=== PATIENT | female | born 1950 | race Caucasian/White ===

== ENCOUNTER → 2016-09-29 | Outpatient (CLI) | payer OTHER | LOC: FIMAGING 14:01 | PROVIDERS: ATTEND Internal Medicine Hematology & Oncology | DX: N63 Unspecified lump in breast (principal) | CPT/HCPCS: G0206; G0279 ==

== ENCOUNTER 2017-06-16 16:09 | Observation (INO) | payer OTHER ==
[2017-06-16] MEDS ORDERED: KETOROLAC 30 MG/1 ML SDV IVP ONE ×2 (16:39)
--- NOTE | 2017-06-16 16:39 | EDPHY ---
H & P Stated Complaint: RLQ pain x2 days w/ chills, unable to amb due to pain today - Personal History Current Tetanus/Diphtheria Vaccine: Yes Tetanus Vaccine Date: less than 10 years - Medical/Surgical History Hx Asthma: No Hx Chronic Respiratory Disease: No Hx Diabetes: No Hx Cardiac Disease: No Hx Renal Disease: No Hx Cirrhosis: No Hx Alcoholism: No Hx HIV/AIDS: No Hx Splenectomy or Spleen Trauma: No Other PMH: breast cancer L side with surgery, thyroidectomy, bilateral foot surgery 40 yrs ago - Social History Smoking Status: Never smoked Time Seen by Provider: 06/16/17 16:33 HPI/ROS: CHIEF COMPLAINT: Right lower quadrant abdominal pain x2 days HISTORY OF PRESENT ILLNESS: 67-year-old female arrives via ambulance complaining of progressive right lower quadrant abdominal pain x2 days, subjective fever. No nausea or vomiting. Bowel movements normal. No urinary abnormality. No trauma. No abnormal vaginal discharge or bleeding. No history of abdominal surgeries. No chest pain. No dyspnea. No back or flank pain. Last oral intake was a cup of coffee at 9:00 a.m. PRIMARY CARE PROVIDER:Dr. Berta Romero. REVIEW OF SYSTEMS: A ten point review of systems was performed and is negative with the exception of the items mentioned in the HPI PAST MEDICAL & SURGICAL HISTORY: Breast cancer. Thyroidectomy. Nephrolithiasis. SOCIAL HISTORY:nonsmoker PHYSICAL EXAM (Prior to examination, patient consented to physical exam, hands were washed and my usual and customary physical exam procedures followed) 1) GENERAL: Well-developed, well-nourished, alert and oriented. Appears to be in no acute distress. 2) HEAD: Normocephalic, atraumatic 3) HEENT: Pupils equal, round, reactive to light bilaterally. Sclera anicteric. 4) NECK: Full range of motion, no meningeal signs. 5) LUNGS: Clear auscultation bilaterally, no wheezes, no rhonchi, no retractions. 6) HEART: Regular rate and rhythm, no murmur, no heave, no gallop. 7) ABDOMEN: guarding abdomen, positive McBurney's point pain, negative Torres's , negative Rovsing's, negative peritoneal sign, 8) MUSCULOSKELETAL: Moving all extremities, no focal areas of tenderness, no obvious trauma. No peripheral edema or discoloration. 9) BACK: No CVA tenderness, no midline vertebral tenderness, no fluctuance, no step-off, no obvious trauma, no visual or palpable abnormality. 10) SKIN: No rash, no petechiae. 11) Psychiatric: Patient is oriented X 3, there is no agitation. DIFFERENTIAL DIAGNOSIS: My differential diagnosis includes, but is not limited to, acute appendicitis, acute cholecystitis, bowel obstruction, acute pancreatitis, ovarian torsion, gastritis and urinary tract infection. The patient understands that this diagnosis is provisional and can never be 100% accurate. This is a partial list of diagnoses considered. These considerations are based on history, physical exam, past history and reassessment. (Kleber Porter) Constitutional: Initial Vital Signs Temperature (C) 37 C 06/16/17 16:20 Heart Rate 87 06/16/17 16:20 Respiratory Rate 18 06/16/17 16:20 Blood Pressure 116/74 06/16/17 16:20 O2 Sat (%) 88 L 06/16/17 16:20 O2 Delivery Mode Room Air Allergies/Adverse Reactions: amoxicillin [Amoxicillin] Allergy (Verified 06/28/14 13:36) Swelling/neck,face,throat amoxicillin trihydrate [From Augmentin] Allergy (Verified 06/28/14 13:36) ORAL SWELLING latex Allergy (Verified 06/16/17 16:20) potassium clavulanate [From Augmentin] Allergy (Verified 06/28/14 13:36) ORAL SWELLING Home Medications: Medication Instructions Recorded Anastrozole 06/28/14 Levothyroxine 06/16/17 Medical Decision Making - Diagnostics Imaging Results: Imaging Impressions Abdomen CT 06/16/17 16:37 Impression: 1. Findings compatible with appendicitis as detailed above. 2. Incidental cysts within the liver and left kidney. 3. New mild compression superior endplate of L4. Prior DEXA scan from February, revealed osteoporosis. These findings were discussed by telephone with Dr. Beni Lopez at 17:50 hour, 06/16/2017. ED Course/Re-evaluation: 4:39 p.m.: Diagnostic studies will be obtained on this patient including CT imaging for concerns over possible acute appendicitis. She remains NPO since 9: 00 a.m. today. 5:00 p.m.: Care turned over to Dr. Lopez. (Kleber Porter) I took over care of this patient at 5:00 p.m.. This patient is here for right lower quadrant pain and evaluation for possible appendicitis. CT scan contrast enhanced is pending at this time. 6:15 p.m., patient re-evaluated. Discussed results of CT scan and diagnosis of appendicitis. Discussed need for operative management. Patient has an allergy to penicillins. She was started on IV ciprofloxacin and Flagyl in the emergency department. All of her questions were answered. 6:30 p.m., spoke with on-call general surgeon Dr. Valentino. Case discussed with him in detail. He will see this patient in the emergency department with plan for operative management. Patient's remaining emergency department course under my care uneventful. Patient admitted under the care of Dr. Valentino in stable condition. (Shagufta Lopez) - Data Points Laboratory Results: Laboratory Results 06/16/17 16:00 06/16/17 16:00 06/16/17 06/16/17 06/16/17 16:40 16:00 16:00 WBC 16.62 10^3/uL H 10^3/uL (3.80-9.50) RBC 5.86 10^6/uL H 10^6/uL (4.18-5.33) Hgb 17.9 g/dL H g/dL (12.6-16.3) POC Hgb 18.4 gm/dL H gm/dL (12.6-16.3) Hct 50.7 % H % (38.0-47.0) POC Hct 54 % H % (38-47) MCV 86.5 fL fL (81.5-99.8) MCH 30.5 pg pg (27.9-34.1) MCHC 35.3 g/dL g/dL (32.4-36.7) RDW 13.2 % % (11.5-15.2) Plt Count 186 10^3/uL 10^3/uL (150-400) MPV 10.9 fL fL (8.7-11.7) Neut % (Auto) 81.8 % H % (39.3-74.2) Lymph % (Auto) 12.2 % L % (15.0-45.0) [place] % (Auto) 5.3 % % (4.5-13.0) Eos % (Auto) 0.0 % L % (0.6-7.6) Baso % (Auto) 0.2 % L % (0.3-1.7) Nucleat RBC Rel Count 0.0 % % (0.0-0.2) Absolute Neuts (auto) 13.60 10^3/uL H 10^3/uL (1.70-6.50) Absolute Lymphs (auto) 2.02 10^3/uL 10^3/uL (1.00-3.00) Absolute Monos (auto) 0.88 10^3/uL H 10^3/uL (0.30-0.80) Absolute Eos (auto) 0.00 10^3/uL L 10^3/uL (0.03-0.40) Absolute Basos (auto) 0.04 10^3/uL 10^3/uL (0.02-0.10) Absolute Nucleated RBC 0.00 10^3/uL 10^3/uL (0-0.01) Immature Gran % 0.5 % % (0.0-1.1) Immature Gran # 0.08 10^3/uL 10^3/uL (0.00-0.10) POC Sodium 142 mEq/L mEq/L (134-144) Sodium 142 mEq/L mEq/L (134-144) POC Potassium 3.6 mEq/L mEq/L (3.3-5.0) Potassium 4.0 mEq/L mEq/L (3.5-5.2) POC Chloride 106 mEq/L mEq/L (97-110) Chloride 107 mEq/L mEq/L (97-110) Carbon Dioxide 21 mEq/l L mEq/l (22-31) Anion Gap 14 mEq/L mEq/L (8-16) POC BUN 13 mg/dL mg/dL (7-23) BUN 13 mg/dL mg/dL (7-23) Creatinine 0.6 mg/dL mg/dL (0.6-1.0) POC Creatinine 0.5 mg/dL L mg/dL (0.6-1.0) Estimated GFR > 60 Glucose 103 mg/dL H mg/dL (70-100) POC Glucose 112 mg/dL H mg/dL (70-100) Calcium 8.7 mg/dL mg/dL (8.5-10.4) Total Bilirubin 2.5 mg/dL H mg/dL (0.1-1.4) Conjugated Bilirubin 0.2 mg/dL mg/dL (0.0-0.5) Unconjugated Bilirubin 2.3 mg/dL H mg/dL (0.0-1.1) AST 16 IU/L IU/L (14-46) ALT 22 IU/L IU/L (9-52) Alkaline Phosphatase 124 IU/L IU/L (38-126) Total Protein 6.9 g/dL g/dL (6.3-8.2) Albumin 4.0 g/dL g/dL (3.5-5.0) Lipase 39 IU/L IU/L (23-300) Medications Given: Metronidazole/Sodium Chloride (Flagyl 500 Mg (Premix)) 100 mls @ 100 mls/hr IV EDNOW ONE PRN Reason: Protocol Stop: 06/16/17 18:58 Last Admin: 06/16/17 18:02 Dose: 100 mls Discontinued Medications Ketorolac Tromethamine (Toradol) 15 mg IVP EDNOW ONE Stop: 06/16/17 16:40 Last Admin: 06/16/17 16:49 Dose: 15 mg Point of Care Test Results: 06/16/17 16:40 POC Sodium 142 POC Potassium 3.6 POC Chloride 106 POC BUN 13 POC Creatinine 0.5 L POC Glucose 112 H Departure - Departure Disposition: [facility] Inpatient Acute Clinical Impression: Appendicitis Referrals: Patient,NotPresent [Primary Care Provider] - As per Instructions
[2017-06-16 16:49] LABS: PLATELET COUNT 186 10^3/uL (150-400)
[2017-06-16] MEDS ORDERED: IOPAMIDOL (ISOVUE-300) 100 ML BTL ONE ×2 (16:55)
[2017-06-16] MEDS ORDERED: CIPROFLOXACIN 400 MG/DEXTROSE 200 ML IV ONE ×2 (17:58)
[2017-06-16] MEDS ORDERED: CIPROFLOXACIN 400 MG/DEXTROSE/200 ML BAG IV ONE ×2 (17:58)
[2017-06-16] MEDS ORDERED: METRONIDAZOLE 500 MG/NACL/100 ML BAG IV ONE ×2 (17:58)
[2017-06-16] MEDS ORDERED: HYDROmorphONE/DILAUDID 1 MG/ML INJ IVP ONE ×2 (18:52)
[2017-06-16] MEDS ORDERED: LR 1,000 ML IV ONE ×2 (19:39)
--- NOTE | 2017-06-16 19:42 | PDGENHP ---
History and Physical - Chief Complaint RLQ abdominal pain - History of Present Illness 67 yo woman with onset of abdominal pain localizing in RLQ. WBC 16K CT positive for dilation and inflammation of the appendix History Information - Allergies/Home Medication List Allergies/Adverse Reactions: amoxicillin [Amoxicillin] Allergy (Verified 06/28/14 13:36) Swelling/neck,face,throat amoxicillin trihydrate [From Augmentin] Allergy (Verified 06/28/14 13:36) ORAL SWELLING latex Allergy (Verified 06/16/17 16:20) potassium clavulanate [From Augmentin] Allergy (Verified 06/28/14 13:36) ORAL SWELLING Home Medications: Anastrozole 06/28/14 [Last Taken Unknown] Levothyroxine 06/16/17 [Last Taken Unknown] I have personally reviewed and updated: family history, medical history, surgical history - Past Medical History Additional medical history: breast ca, thyroid ca - Surgical History Additional surgical history: breast bx, thryoidectomy - Family History Positive for: non-pertinent - Social History Smoking Status: Never smoked Review of Systems Review of Systems: ROS: 10pt was reviewed & negative except for what was stated in HPI & below Gastrointestinal: Reports: abdominal pain. Denies: diarrhea, nausea Physical Exam Physical Exam: Temp Pulse Resp BP Pulse Ox 37 C 74 16 100/62 94 06/16/17 16:20 06/16/17 18:00 06/16/17 18:00 06/16/17 18:00 06/16/17 18:00 Constitutional: appears nourished Eyes: anicteric sclera, EOMI Ears, Nose, Mouth, Throat: hearing normal Cardiovascular: regular rate and rhythym, No systolic murmur Peripheral Pulses: 2+: carotid (R), carotid (L), femoral (R), femoral (L), dorsalis-pedis (R), dorsalis-pedis (L) Respiratory: no respiratory distress, no rales or rhonchi, clear to auscultation Gastrointestinal: tenderness (Rlq), guarding Skin: warm, normal color Musculoskeletal: full muscle strength Psychiatric: interacting appropriately, not anxious Lymph, Heme, Immunologic: No lymphadenopathy Lab Data & Imaging Review 06/16/17 16:00 06/16/17 16:00 WBC 16.62 10^3/uL (3.80-9.50) H 06/16/17 16:00 RBC 5.86 10^6/uL (4.18-5.33) H 06/16/17 16:00 Hgb 17.9 g/dL (12.6-16.3) H 06/16/17 16:00 POC Hgb 18.4 gm/dL (12.6-16.3) H 06/16/17 16:40 Hct 50.7 % (38.0-47.0) H 06/16/17 16:00 POC Hct 54 % (38-47) H 06/16/17 16:40 MCV 86.5 fL (81.5-99.8) 06/16/17 16:00 MCH 30.5 pg (27.9-34.1) 06/16/17 16:00 MCHC 35.3 g/dL (32.4-36.7) 06/16/17 16:00 RDW 13.2 % (11.5-15.2) 06/16/17 16:00 Plt Count 186 10^3/uL (150-400) 06/16/17 16:00 MPV 10.9 fL (8.7-11.7) 06/16/17 16:00 Neut % (Auto) 81.8 % (39.3-74.2) H 06/16/17 16:00 Lymph % (Auto) 12.2 % (15.0-45.0) L 06/16/17 16:00 [place] % (Auto) 5.3 % (4.5-13.0) 06/16/17 16:00 Eos % (Auto) 0.0 % (0.6-7.6) L 06/16/17 16:00 Baso % (Auto) 0.2 % (0.3-1.7) L 06/16/17 16:00 Nucleat RBC Rel Count 0.0 % (0.0-0.2) 06/16/17 16:00 Absolute Neuts (auto) 13.60 10^3/uL (1.70-6.50) H 06/16/17 16:00 Absolute Lymphs (auto) 2.02 10^3/uL (1.00-3.00) 06/16/17 16:00 Absolute Monos (auto) 0.88 10^3/uL (0.30-0.80) H 06/16/17 16:00 Absolute Eos (auto) 0.00 10^3/uL (0.03-0.40) L 06/16/17 16:00 Absolute Basos (auto) 0.04 10^3/uL (0.02-0.10) 06/16/17 16:00 Absolute Nucleated RBC 0.00 10^3/uL (0-0.01) 06/16/17 16:00 Immature Gran % 0.5 % (0.0-1.1) 06/16/17 16:00 Immature Gran # 0.08 10^3/uL (0.00-0.10) 06/16/17 16:00 POC Sodium 142 mEq/L (134-144) 06/16/17 16:40 Sodium 142 mEq/L (134-144) 06/16/17 16:00 POC Potassium 3.6 mEq/L (3.3-5.0) 06/16/17 16:40 Potassium 4.0 mEq/L (3.5-5.2) 06/16/17 16:00 POC Chloride 106 mEq/L (97-110) 06/16/17 16:40 Chloride 107 mEq/L (97-110) 06/16/17 16:00 Carbon Dioxide 21 mEq/l (22-31) L 06/16/17 16:00 Anion Gap 14 mEq/L (8-16) 06/16/17 16:00 POC BUN 13 mg/dL (7-23) 06/16/17 16:40 BUN 13 mg/dL (7-23) 06/16/17 16:00 Creatinine 0.6 mg/dL (0.6-1.0) 06/16/17 16:00 POC Creatinine 0.5 mg/dL (0.6-1.0) L 06/16/17 16:40 Estimated GFR > 60 06/16/17 16:00 Glucose 103 mg/dL (70-100) H 06/16/17 16:00 POC Glucose 112 mg/dL (70-100) H 06/16/17 16:40 Calcium 8.7 mg/dL (8.5-10.4) 06/16/17 16:00 Total Bilirubin 2.5 mg/dL (0.1-1.4) H 06/16/17 16:00 Conjugated Bilirubin 0.2 mg/dL (0.0-0.5) 06/16/17 16:00 Unconjugated Bilirubin 2.3 mg/dL (0.0-1.1) H 06/16/17 16:00 AST 16 IU/L (14-46) 06/16/17 16:00 ALT 22 IU/L (9-52) 06/16/17 16:00 Alkaline Phosphatase 124 IU/L (38-126) 06/16/17 16:00 Total Protein 6.9 g/dL (6.3-8.2) 06/16/17 16:00 Albumin 4.0 g/dL (3.5-5.0) 06/16/17 16:00 Lipase 39 IU/L (23-300) 06/16/17 16:00 Imaging Review: Imaging Impressions Abdomen CT 06/16/17 16:37 Impression: 1. Findings compatible with appendicitis as detailed above. 2. Incidental cysts within the liver and left kidney. 3. New mild compression superior endplate of L4. Prior DEXA scan from February, revealed osteoporosis. These findings were discussed by telephone with Dr. Beni Lopez at 17:50 hour, 06/16/2017. Assessment & Plan Assessment: Appendicitis (Acute) Plan: Laparoscopic appendectomy the risk, benefits and alternative discussed. All questions addressed. Consent obtained. Received levaquin and flagyl for PCN anaphylaxis.
[2017-06-16] MEDS ORDERED: BUPIVACAINE 0.5% 30 ML SDV ONE ×2 (19:45)
[2017-06-16] MEDS ORDERED: LIDOCAINE 1% 300 MG/30 ML SDV ONE ×2 (19:45)
[2017-06-16] MEDS ORDERED: PROPOFOL 200 MG/20 ML VIAL ONE ×2 (20:51)
[2017-06-16] MEDS ORDERED: fentaNYL 100 MCG/2 ML INJ ONE ×4 (20:51→21:23)
[2017-06-16] MEDS ORDERED: SUCCINYLCHOLINE CHLORIDE*ANESTHESIA ONLY*200 MG/10 ML SYR IVP ONE ×2 (20:52)
[2017-06-16] MEDS ORDERED: LIDOCAINE 2% 5 ML SDV ONE ×2 (20:53)
[2017-06-16] MEDS ORDERED: ATROPINE SULFATE 1 MG/ML VIAL ONE ×2 (21:06)
[2017-06-16] MEDS ORDERED: DEXAMETHASONE 4 MG/ML VIAL ONE ×2 (21:21)
[2017-06-16] MEDS ORDERED: ONDANSETRON 4 MG/2 ML VIAL ONE ×2 (21:21)
[2017-06-16] MEDS ORDERED: SUGAMMADEX SODIUM 200 MG/2 ML VIAL IVP ONE ×4 (21:24→21:41)
--- NOTE | 2017-06-16 21:31 | PDANEPAE ---
ANE History of Present Illness Patient presents for lap appy ALEJANDRA Past Medical History - Pulmonary History Hx Sleep Apnea: No - Endocrine History Hx Diabetes: No ANE Review of Systems Review of Systems: ANE Patient History - Allergies Allergies/Adverse Reactions: amoxicillin [Amoxicillin] Allergy (Verified 06/28/14 13:36) Swelling/neck,face,throat amoxicillin trihydrate [From Augmentin] Allergy (Verified 06/28/14 13:36) ORAL SWELLING latex Allergy (Verified 06/16/17 16:20) potassium clavulanate [From Augmentin] Allergy (Verified 06/28/14 13:36) ORAL SWELLING - Home Medications Home medications: home medication list seen and reviewed Home Medications: Anastrozole [Arimidex 1 mg (*)] 1 mg PO DAILY 06/16/17 [Last Taken 06/16/17 11: 30] Levothyroxine [Synthroid 100 mcg (*)] 100 mcg PO DAILY06 06/16/17 [Last Taken 11:00] Oxymetazoline HCl [Afrin Nasal [place] (OTC)] 2 spray EACH[place]ARE HS 06/16/17 [Last Taken 06/15/17 23:00] - NPO status NPO Status: no food or drink >8 hours NPO Since - Liquids (Date): 06/16/17 NPO Since - Liquids (Time): 09:00 NPO Since - Solids (Date): 06/15/17 NPO Since - Solids (Time): 12:00 - Anes Hx Anes Hx: no prior problems - Smoking Hx Smoking Status: Never smoked ANE Labs/Vital Signs - Labs Result Diagrams: 06/16/17 16:00 06/16/17 16:00 - Vital Signs Blood Pressure: 105/87 Heart Rate: 79 Respiratory Rate: 20 O2 Sat (%): 92 Height: 165.1 cm Weight: 68.039 kg ANE Physical Exam - Airway Neck exam: FROM Mallampati Score: Class 2 Mouth exam: small mouth opening - Pulmonary Pulmonary: no respiratory distress - Cardiovascular Cardiovascular: regular rate and rhythym - ASA Status ASA Status: II, E ANE Anesthesia Plan Anesthesia Plan: general endotracheal anesthesia (RBA discussed)
[2017-06-16] MEDS ORDERED: LR 500 ML IV PRN ×2 (21:35)
[2017-06-16] MEDS ORDERED: ONDANSETRON 4 MG/2 ML VIAL IVP PRN ×2 (21:35)
[2017-06-16] MEDS ORDERED: NALOXONE HCL 0.4 MG/ML INJ IVP PRN ×2 (21:35)
[2017-06-16] MEDS ORDERED: fentaNYL 100 MCG/2 ML INJ IVP PRN ×2 (21:35)
[2017-06-16] MEDS ORDERED: HYDROCODONE/APAP 5/325 TAB PO PRN ×4 (21:35→22:14)
--- NOTE | 2017-06-16 21:44 | POSTOPPROG ---
Post Op Note Date of Operation: 06/16/17 Surgeon: Castro Valentino Blacksmith Supervisor: none Anesthesiologist: Brandon Anesthesia: GET(General Endotracheal) Pre-op Diagnosis: acute appendicitis Post-op Diagnosis: same Procedure: Lap Appy Inf/Abcess present in the surg proc area at time of surgery?: Yes Depth: Organ Space EBL: Minimal Specimen(s): appendix to permanent pathology
--- NOTE | 2017-06-16 21:48 | SUROPNOTE ---
STEVAN Operative Report - Surgery Date of surgery: 06/16/2017 Preop diagnosis: Acute appendicitis Postop diagnosis: Acute appendicitis Procedure: Laparoscopic appendectomy Surgeon:Castro Valentino MD Anesthesiologist: Dr. Taylor Specimen: Appendix to permanent pathology EBL: 10 mL Fluids given 1 L crystalloid Complications: None Procedure: The patient was brought to the operating room after induction of endotracheal anesthesia in supine position and identification by 2 independent variables, her abdomen is prepped chlorhexidine and draped sterilely. Time-out procedure was performed according to institutional standards. Local anesthetic was then infused in skin subcutaneous tissues of the trocar sites open supraumbilical trocar placement was done in the abdomen was insufflated to 15 torr with carbon dioxide the abdomen was inspected inflammation the right lower quadrant was seen. There is no suppurative fluid. Working trocars were placed in the lower midline under direct visualization and the appendix was mobilized into the field of dissection for a window was created between the base of the appendix and the mesentery mesentery was controlled with LigaSure bipolar energy. The appendix was controlled at the base using Endo-ELISABETH stapler 35 mm. Hemostasis was assured. The appendix was placed into an endo-pouch and brought out through the umbilical incision. The abdomen is inspected for hemostasis which was meticulous. There was no signs of other pathology. The working trocars removed the stomach was deflated and needle instrument sponge counts were then verified to be correct. The fascia was closed using 0 Vicryl. All 3 incisions were approximated at the skin level using Monocryl. Dermabond was applied. The patient was awakened extubated taken to recovery room in stable condition needle instrument sponge counts having been verified to be correct a 2nd time. There were no immediate complications.
--- NOTE | 2017-06-16 22:01 | POSTANESTH ---
Post Anesthetic Evaluation Cardiovascular Status: Normal, Stable Respiratory Status: Similar to Pre-op Cond. Level of Consciousness/Mental Status: Can Participate in Eval Pain Control: Adequate, Prn Tx Ordered Nausea/Vomiting Control: Adequate, Prn Tx Ordered Complications Possibly Related to Anesthesia: None Noted
[2017-06-16] MEDS ORDERED: HYDROmorphone HCL/NS/PF 0.4 MG/2 ML SYR IVP PRN ×2 (22:14)
[2017-06-16] MEDS ORDERED: LR 1,000 ML IV SCH ×2 (22:30)
[2017-06-17] MEDS: KETOROLAC 15 MG/1 ML SDV IVP SCH ×4 (00:05→06:29)
[2017-06-17] MEDS ORDERED: FLU VACC QS 2017-18 (3YR+)/PF 0.5 ML SYR (FLUARIX QUAD) IM ONE ×2 (00:08)
[2017-06-17] MEDS ORDERED: PNEUMOC 13-VAL CONJ-DIP CRM/PF 0.5 ML SYR IM ONE ×2 (00:08)
[2017-06-17] MEDS ORDERED: CIPROFLOXACIN 400 MG/DEXTROSE 200 ML IV ONE ×2 (06:00)
[2017-06-17] MEDS ORDERED: CIPROFLOXACIN 200 MG/DEXTROSE 100 ML IV ONE ×2 (06:00)
[2017-06-17] MEDS ORDERED: LEVOTHYROXINE 100 MCG TAB PO SCH ×2 (06:00)
[2017-06-17 07:16] VITALS: BP 87/52; PULSE 60; RESP 16; TEMP 98.6; O2SAT 93
[2017-06-17] MEDS ORDERED: ANASTROZOLE 1 MG TAB PO SCH ×2 (09:00)
--- NOTE | 2017-06-17 09:20 | SOAPPROG ---
SOAP Progress Note Assessment/Plan: Assessment/Plan: Ashleigh Houston is a 67-year-old woman who presented with acute appendicitis. History of breast cancer and thyroid cancer status post left breast lumpectomy total thyroidectomy currently on Synthroid and Arimidex. The patient has anaphylactic type reaction at amoxicillin. She underwent uncomplicated appendectomy. She is being discharged home on her current medications as well as oxycodone for pain. She is back to her baseline cardiopulmonary status and remains at her baseline low blood pressure of between 85 and 100 systolic No complications of this hospital stay Alert oriented no distress Regular rate and rhythm Clear to auscultation Abdomen soft nontender incisions clean dry no signs of infection or breakdown Extremities without edema Ciprofloxacin and Flagyl completed a follow-up in the office 06/17/17 09:18 Objective: Vital Signs Temp Pulse Resp BP Pulse Ox 37.0 C 60 16 87/52 L 93 06/17/17 07:12 06/17/17 07:12 06/17/17 07:12 06/17/17 07:12 06/17/17 07:12 06/16/17 06/17/17 06/18/17 05:59 05:59 04:59 Intake Total 1280 Output Total 130 150 Balance 1150 -150 ICD10 Worksheet Patient Problems: Problems Problem Status Onset Appendicitis Acute
--- NOTE | 2017-06-17 11:02 | ASDISCHSUM ---
Discharge Information Plan Status:Home with No Needs Medically Cleared to Leave:06/17/2017 Discharge Date:06/17/2017 10:54 AM CM D/C Disposition:Home, Routine, Self-Care ADT D/C Disposition:Home, Routine, Self-Care Projected Discharge Date:06/17/2017 10:54 AM Transportation at D/C:Family Discharge Delay Reason: Follow-Up Date:06/17/2017 10:54 AM Discharge Slot:1 - 8:01 am - 12:00 noon Final Diagnosis:Acute appendicitis, s/p appendectomy Placement Information Patient Contact Information Contact Name:SAMUEL Relationship: Address:[address] Work Phone: City:[facility] Phone: [facility]/Zip Code:[place] [address] Email: Financial Information Financial Class:HMO and PPO Plans Primary Plan Desc:[facility] Primary Plan Number:[id number] Secondary Plan Desc: Secondary Plan Number: Assessment Information [facility] CM Progress Note CM Note CM Note Notes: Reviewed chart regarding discharge plan of care, pt's progress. Pt admitted w/ acute appendicitis, s/p appendectomy. Per MD notes, pt to discharge home w/ family support and no identified needs. IM not signed, not applicable, pt has [facility]. Pt to follow up as directed. CM available for any further issues or concerns. Current Discharge Plan: Home independently w/ family support Date Signed: 06/17/2017 11:02 AM Electronically Signed By:Jessica Veras RN Intervention Information Intervention Type:*Incorrect Registration Date of Service:06/16/2017 10:16 PM Patient Type:Observation Staff Member:MADAY Bai Shelly Hours:0.25 Discipline: Severity:1 (0-1 Hours) Comment:Registered inpatient, admit order writ ten observation status.
--- NOTE | 2017-06-17 11:02 | ASDISCHSUM ---
Discharge Information Plan Status:Home with No Needs Medically Cleared to Leave:06/17/2017 Discharge Date:06/17/2017 10:54 AM CM D/C Disposition:Home, Routine, Self-Care ADT D/C Disposition:Home, Routine, Self-Care Projected Discharge Date:06/17/2017 10:54 AM Transportation at D/C:Family Discharge Delay Reason: Follow-Up Date:06/17/2017 10:54 AM Discharge Slot:1 - 8:01 am - 12:00 noon Final Diagnosis:Acute appendicitis, s/p appendectomy Placement Information Patient Contact Information Contact Name:SAMUEL Relationship: Address:[address] Work Phone: City:[employer] Phone: [facility]/Zip Code:[place] [address] Email: Financial Information Financial Class:HMO and PPO Plans Primary Plan Desc:[facility] Primary Plan Number:[id number] Secondary Plan Desc: Secondary Plan Number: Assessment Information [facility] CM Progress Note CM Note CM Note Notes: Reviewed chart regarding discharge plan of care, pt's progress. Pt admitted w/ acute appendicitis, s/p appendectomy. Per MD notes, pt to discharge home w/ family support and no identified needs. IM not signed, not applicable, pt has [facility]. Pt to follow up as directed. CM available for any further issues or concerns. Current Discharge Plan: Home independently w/ family support Date Signed: 06/17/2017 11:02 AM Electronically Signed By:Jessica Veras RN Intervention Information Intervention Type:*Incorrect Registration Date of Service:06/16/2017 10:16 PM Patient Type:Observation Staff Member:MADAY Bai Shelly Hours:0.25 Discipline: Severity:1 (0-1 Hours) Comment:Registered inpatient, admit order writ ten observation status.
--- NOTE | 2017-06-17 11:02 | ASDISCHSUM ---
Discharge Information Plan Status:Home with No Needs Medically Cleared to Leave:06/17/2017 Discharge Date:06/17/2017 10:54 AM CM D/C Disposition:Home, Routine, Self-Care ADT D/C Disposition:Home, Routine, Self-Care Projected Discharge Date:06/17/2017 10:54 AM Transportation at D/C:Family Discharge Delay Reason: Follow-Up Date:06/17/2017 10:54 AM Discharge Slot:1 - 8:01 am - 12:00 noon Final Diagnosis:Acute appendicitis, s/p appendectomy Placement Information Patient Contact Information Contact Name:SAMUEL Relationship: Address:[address] Work Phone: City:[facility] Phone: [facility]/Zip Code:[place] [address] Email: Financial Information Financial Class:HMO and PPO Plans Primary Plan Desc:[facility] Primary Plan Number:[id number] Secondary Plan Desc: Secondary Plan Number: Assessment Information [facility] CM Progress Note CM Note CM Note Notes: Reviewed chart regarding discharge plan of care, pt's progress. Pt admitted w/ acute appendicitis, s/p appendectomy. Per MD notes, pt to discharge home w/ family support and no identified needs. IM not signed, not applicable, pt has [facility]. Pt to follow up as directed. CM available for any further issues or concerns. Current Discharge Plan: Home independently w/ family support Date Signed: 06/17/2017 11:02 AM Electronically Signed By:Jessica Veras RN Intervention Information Intervention Type:*Incorrect Registration Date of Service:06/16/2017 10:16 PM Patient Type:Observation Staff Member:MADAY Bai Shelly Hours:0.25 Discipline: Severity:1 (0-1 Hours) Comment:Registered inpatient, admit order writ ten observation status.
[2017-06-17] MEDS ORDERED: OXYMETAZOLINE 30 ML NASAL SPRAY EACHNARE SCH ×2 (21:00)
== END 2017-06-17 10:54 | disposition home or self-care (01) ==
LOC: EDUNIT# → INTOOBSV 18:37 → F3E 22:44
PROVIDERS: ADMIT Surgery; ATTEND Surgery
PROC: 0DTJ4ZZ Resection of Appendix, Percutaneous Endoscopic Approach (ICD-10-PCS; principal; 2017-06-16 20:00)
DX: K35.80 Unspecified acute appendicitis (principal); M80.08XA Age-related osteoporosis with current pathological fracture, vertebra(e), initial encounter for fracture; Z85.3 Personal history of malignant neoplasm of breast; Z23 Encounter for immunization; Z85.850 Personal history of malignant neoplasm of thyroid
CPT/HCPCS: 44970; 74177; 90471; G0378; 82947-QW; 96365; G0008; G0009; J0330; J0461; J0744; J1100; J1170; J1885; J2405; J2704; J3010; Q9967

== ENCOUNTER → 2017-10-18 | Outpatient (CLI) | payer OTHER | LOC: FIMAGING 10:01 | PROVIDERS: ATTEND Surgery | DX: Z12.31 Encounter for screening mammogram for malignant neoplasm of breast (principal); Z85.3 Personal history of malignant neoplasm of breast ==

== ENCOUNTER → 2018-08-30 | Outpatient (CLI) | payer OTHER | LOC: FIMAGING 09:54 | PROVIDERS: ATTEND Internal Medicine Hematology & Oncology | DX: Z13.820 Encounter for screening for osteoporosis (principal); M81.0 Age-related osteoporosis without current pathological fracture; Z79.899 Other long term (current) drug therapy ==

== ENCOUNTER → 2018-11-13 | Outpatient (CLI) | payer OTHER | LOC: FIMAGING 14:45 | PROVIDERS: ATTEND Internal Medicine Hematology & Oncology | DX: Z12.31 Encounter for screening mammogram for malignant neoplasm of breast (principal); Z85.3 Personal history of malignant neoplasm of breast ==

== ENCOUNTER → 2018-12-05 | Outpatient (CLI) | payer OTHER | LOC: FIMAGING 13:41 | PROVIDERS: ATTEND Internal Medicine Hematology & Oncology | DX: N63.21 Unspecified lump in the left breast, upper outer quadrant (principal) ==

== ENCOUNTER → 2018-12-18 | Outpatient (CLI) | payer OTHER | LOC: FIMAGING 07:10 ==